=== PATIENT | female | born 1930 | race African-American/Black ===

== ENCOUNTER 2020-02-12 19:23 | Inpatient (IN) ==
[2020-02-12] MEDS ORDERED: SODIUM CHLORIDE 0.9% 500 ML IV STA (19:52)
[2020-02-12 20:19] LABS: Basophils % 0.6 % (0.0-0.8); Eosinophils # 0.4 10*3/uL (0.0-0.87); Eosinophils % 7.4 % (0.00-10.9); Hematocrit 33.3 VOL% (35.7-47.0); Hemoglobin 10.3 GM/DL (12.0-16.0); Immature Granulocytes % 0.2 %; Immature Granulocytes Absolute 0.01 #; Lymphocytes # 1.1 10*3/uL (1.4-4.0); Lymphocytes % 23.3 % (21.3-54.2); Mean Corpuscular HGB Conc 30.9 GM/DL (32-36); Mean Corpuscular Volume 92.5 FL (87-102); Mean Platelet Volume 10.9 FL (9.6-12.0); Monocytes % 8.2 % (1.7-12.7); Neutrophils % 60.3 % (38.7-73.9); Platelet Count 111 T/CUMM (130-400); Red Cell Distribution Width 13.3 % (9.3-17.3); White Blood Count 4.9 T/CUMM (4-12)
[2020-02-12 20:22] LABS: Alanine Aminotransferase 11 U/L (13-56); Alkaline Phosphatase 116 U/L (45-117); Aspartate Amino Transferase 13 U/L (0-37); Bilirubin,Total < 0.39 MG/DL (0.2-1.0); Blood Urea Nitrogen 23 MG/DL (7-18); Calcium 8.6 MG/DL (8.5-10.1); Glucose 171 MG/DL (74-106); Osmolality,Calculated 290.1 MOS/KG (273-304); Total Protein 6.7 G/DL (6.4-8.3)
[2020-02-12 20:23] LABS: Estimated Glom Filtration Rate 0 ML/MIN; Troponin I 0.076 NG/ML (0.00-0.045)
[2020-02-12] MEDS ORDERED: POTASSIUM CHLORIDE 20 MEQ TABLET PO STA (20:24)
[2020-02-12 20:53] LABS: INR 1.2; PT Patient Result 12.3 SECS (9.8-11.9)
[2020-02-12] MEDS ORDERED: ZALEPLON 5 MG CAPSULE PO PRN (21:12)
[2020-02-12] MEDS ORDERED: hydrALAZINE 20 MG/1 ML VIAL IV PRN (21:12)
[2020-02-12] MEDS ORDERED: guaiFENesin/DM ER 600-30 MG TABLET PO PRN (21:12)
[2020-02-12] MEDS ORDERED: DEXTROSE 50% 25 GM/50 ML VIAL IV PRN (21:12)
[2020-02-12] MEDS ORDERED: ONDANSETRON 4 MG/2 ML VIAL IV PRN (21:12)
[2020-02-12] MEDS ORDERED: GLUCAGON 1 MG VIAL IM PRN (21:12)
[2020-02-12] MEDS ORDERED: MORPHINE 4 MG/1 ML VIAL IV PRN (21:12)
[2020-02-12] MEDS ORDERED: NICOTINE 21 MG/24 HR PATCH TRANSDERM PRN (21:12)
[2020-02-12] MEDS ORDERED: ACETAMINOPHEN 325 MG TABLET PO PRN (21:12)
[2020-02-12] MEDS ORDERED: CETIRIZINE 10 MG TABLET PO PRN (21:15)
[2020-02-12 21:40] LABS: Bilirubin,Urine Negative (Negative); Blood, Urine Negative (Negative); Glucose,Urine (UA) Negative (Negative); Hyaline Casts,Urine 4 /LPF (0-3); Ketones,Urine Negative (Negative); Mucus,Urine Occasional /LPF (Occasional); Nitrite,Urine Negative (Negative); Protein,Urine Negative; RBC,Urine 1 /HPF (0-4); Squamous Epithelial Cell,Urine Occasional /HPF (0-10); Urine Appearance CLEAR (Clear); Urine Color Yellow (Yellow); Urine Urobilinogen < 2.0 EU/DL (0.2-1.0); WBC,Urine 1 /HPF (0-6)
[2020-02-12 21:42] LABS: Barbiturates Screen,Urine Negative (Negative); Benzodiazepines Screen,Urine Negative (Negative); Cannabinoid Screen,Urine Negative (Negative); Opiate Screen,Urine Negative (Negative); Phencyclidine Screen,Urine Negative (Negative)
[2020-02-12] MEDS ORDERED: AZITHROMYCIN INJ 500 MG in SODIUM CHLORIDE 0.9% 250 ML IV SCH (22:00)
[2020-02-12] MEDS: cefTRIAXone 1,000 MG in SYRINGE 1 EACH IV SCH (22:35)
[2020-02-12] MEDS: ENOXAPARIN 100 MG/ML SYRINGE SUBCUT SCH (22:35)
[2020-02-13 06:39] LABS: Basophils % 0.3 % (0.0-0.8); Eosinophils # 0.2 10*3/uL (0.0-0.87); Eosinophils % 2.9 % (0.00-10.9); Hematocrit 34.7 VOL% (35.7-47.0); Hemoglobin 10.7 GM/DL (12.0-16.0); Immature Granulocytes % 0.3 %; Immature Granulocytes Absolute 0.02 #; Lymphocytes # 0.9 10*3/uL (1.4-4.0); Lymphocytes % 13.3 % (21.3-54.2); Mean Corpuscular HGB Conc 30.8 GM/DL (32-36); Mean Corpuscular Volume 91.3 FL (87-102); Mean Platelet Volume 10.7 FL (9.6-12.0); Monocytes % 6.9 % (1.7-12.7); Neutrophils % 76.3 % (38.7-73.9); Platelet Count 136 T/CUMM (130-400); Red Cell Distribution Width 13.2 % (9.3-17.3); White Blood Count 6.9 T/CUMM (4-12)
[2020-02-13 06:58] LABS: Calcium 8.9 MG/DL (8.5-10.1); Osmolality,Calculated 285.1 MOS/KG (273-304)
[2020-02-13] MEDS: TRIAMTERENE/HCTZ 37.5-25 MG TABLET PO SCH (11:50)
[2020-02-13] MEDS: carvediloL 6.25 MG TABLET PO SCH ×2 (11:51→17:03)
[2020-02-13] MEDS: PANTOPRAZOLE 40 MG TABLET PO SCH (11:51)
[2020-02-13] MEDS: POTASSIUM CHLORIDE 20 MEQ TABLET PO SCH (11:51)
[2020-02-13] MEDS: DOCUSATE SODIUM 100 MG CAPSULE PO SCH ×2 (11:52→21:03)
[2020-02-13] MEDS: AZITHROMYCIN 250 MG TABLET PO SCH (11:52)
[2020-02-13] MEDS: ASPIRIN EC 81 MG TABLET PO SCH (11:53)
[2020-02-13] MEDS: diphenhydrAMINE CAP 25 MG CAPSULE PO PRN (20:57)
[2020-02-13] MEDS: cefTRIAXone 1,000 MG in SYRINGE 1 EACH IV SCH (21:03)
[2020-02-13] MEDS: ENOXAPARIN 100 MG/ML SYRINGE SUBCUT SCH (22:01)
[2020-02-14 05:27] LABS: Basophils % 0.6 % (0.0-0.8); Eosinophils # 0.5 10*3/uL (0.0-0.87); Eosinophils % 8.7 % (0.00-10.9); Hematocrit 33.7 VOL% (35.7-47.0); Hemoglobin 10.5 GM/DL (12.0-16.0); Immature Granulocytes % 0.5 %; Immature Granulocytes Absolute 0.03 #; Lymphocytes # 1.4 10*3/uL (1.4-4.0); Lymphocytes % 22.5 % (21.3-54.2); Mean Corpuscular HGB Conc 31.2 GM/DL (32-36); Mean Corpuscular Volume 92.3 FL (87-102); Mean Platelet Volume 10.8 FL (9.6-12.0); Neutrophils % 59.7 % (38.7-73.9); Platelet Count 138 T/CUMM (130-400); Red Blood Count 3.65 MC/CUMM (3.8-5.5); Red Cell Distribution Width 13.1 % (9.3-17.3); White Blood Count 6.2 T/CUMM (4-12)
[2020-02-14 06:00] LABS: Hypochromasia 1+; Microcytosis 1+; Ovalocytes Slight; Platelet Estimate Normal
[2020-02-14 06:02] LABS: Calcium 9.1 MG/DL (8.5-10.1); Osmolality,Calculated 285.1 MOS/KG (273-304)
[2020-02-14 06:06] LABS: Troponin I 0.614 NG/ML (0.00-0.045)
[2020-02-14] MEDS: carvediloL 6.25 MG TABLET PO SCH ×2 (08:43→17:44)
[2020-02-14] MEDS: PANTOPRAZOLE 40 MG TABLET PO SCH (08:43)
[2020-02-14] MEDS: POTASSIUM CHLORIDE 20 MEQ TABLET PO SCH (08:43)
[2020-02-14] MEDS: ASPIRIN EC 81 MG TABLET PO SCH (08:43)
[2020-02-14] MEDS: DOCUSATE SODIUM 100 MG CAPSULE PO SCH ×2 (08:44→21:15)
[2020-02-14] MEDS: TRIAMTERENE/HCTZ 37.5-25 MG TABLET PO SCH (08:44)
[2020-02-14] MEDS: AZITHROMYCIN 250 MG TABLET PO SCH (08:44)
[2020-02-14] MEDS ORDERED: ZALEPLON 5 MG CAPSULE PO SCH (21:00)
[2020-02-14] MEDS: APIXABAN 5 MG TABLET PO SCH (21:15)
[2020-02-14] MEDS: diphenhydrAMINE CAP 25 MG CAPSULE PO PRN (21:15)
[2020-02-14] MEDS: cefTRIAXone 1,000 MG in SYRINGE 1 EACH IV SCH (22:43)
[2020-02-15] MEDS: ASPIRIN EC 81 MG TABLET PO SCH (09:18)
[2020-02-15] MEDS: PANTOPRAZOLE 40 MG TABLET PO SCH (09:19)
[2020-02-15] MEDS: TRIAMTERENE/HCTZ 37.5-25 MG TABLET PO SCH (09:19)
[2020-02-15] MEDS: APIXABAN 5 MG TABLET PO SCH (09:19)
[2020-02-15] MEDS: DOCUSATE SODIUM 100 MG CAPSULE PO SCH (09:19)
[2020-02-15] MEDS: AZITHROMYCIN 250 MG TABLET PO SCH (09:19)
[2020-02-15] MEDS: POTASSIUM CHLORIDE 20 MEQ TABLET PO SCH (09:19)
[2020-02-15] MEDS: carvediloL 6.25 MG TABLET PO SCH (09:20)
[2020-02-15 09:51] VITALS: BP 149/68
== END 2020-02-15 15:10 | disposition home health service (06) | DRG 175 ==
LOC: N.EDINP 19:23 → N.ED 19:23 → SUATTDRO 21:12 → N.EDINP 23:05 → N.TELEN 23:36
PROVIDERS: ADMIT Internal Medicine; ATTEND Internal Medicine

== ENCOUNTER 2020-02-16 10:27 | Inpatient (IN) ==
[2020-02-16 11:53] LABS: Apearance,Urine CLEAR (Clear); Bilirubin,Urine Negative (Negative); Blood, Urine Negative (Negative); Glucose,Urine (UA) Negative (Negative); Hyaline Casts,Urine 1 /LPF (0-3); Ketones,Urine Negative (Negative); Mucus,Urine Occasional /LPF (Occasional); Nitrite,Urine Negative (Negative); Protein,Urine Negative; RBC,Urine 1 /HPF (0-4); Squamous Epithelial Cell,Urine Occasional /HPF (0-10); Urine Color Yellow (Yellow); Urine Specific Gravity 1.015 (1.001-1.035); Urine Urobilinogen < 2.0 EU/DL (0.2-1.0); WBC,Urine <1 /HPF (0-6)
[2020-02-16 11:53] LABS: Basophils % 0.3 % (0.0-0.8); Eosinophils # 0.7 10*3/uL (0.0-0.87); Eosinophils % 7.1 % (0.00-10.9); Hematocrit 32.3 VOL% (35.7-47.0); Hemoglobin 9.9 GM/DL (12.0-16.0); Immature Granulocytes % 0.4 %; Immature Granulocytes Absolute 0.04 #; Lymphocytes # 0.8 10*3/uL (1.4-4.0); Lymphocytes % 8.2 % (21.3-54.2); Mean Corpuscular HGB Conc 30.7 GM/DL (32-36); Mean Corpuscular Volume 93.6 FL (87-102); Mean Platelet Volume 11.4 FL (9.6-12.0); Platelet Count 184 T/CUMM (130-400); Red Blood Count 3.45 MC/CUMM (3.8-5.5); Red Cell Distribution Width 13.1 % (9.3-17.3); White Blood Count 10.1 T/CUMM (4-12)
[2020-02-16 12:09] LABS: INR 1.2; PT Patient Result 12.4 SECS (9.8-11.9); Partial Thromboplastin Time 24.2 SECS (23.9-33.8)
[2020-02-16 12:10] LABS: Albumin 2.6 G/DL (3.4-5.0); Bilirubin,Total 0.5 MG/DL (0.2-1.0); Osmolality,Calculated 291.1 MOS/KG (273-304); Total Protein 6.1 G/DL (6.4-8.3)
[2020-02-16 12:14] LABS: Troponin I 0.093 NG/ML (0.00-0.045)
[2020-02-16] MEDS ORDERED: SODIUM CHLORIDE 0.9% 1,000 ML IV STA (13:31)
[2020-02-16] MEDS ORDERED: cefTRIAXone 1,000 MG in SODIUM CHLORIDE 0.9% 100 ML IV STA (13:31)
[2020-02-16] MEDS ORDERED: GLUCAGON 1 MG VIAL IM PRN (13:53)
[2020-02-16] MEDS ORDERED: DEXTROSE 50% 25 GM/50 ML VIAL IV PRN (13:53)
[2020-02-16] MEDS ORDERED: SODIUM CHLORIDE 0.9% 1,000 ML IV SCH (14:00)
[2020-02-16 14:19] LABS: % Iron Saturation 16.2 % (18-50)
[2020-02-16] MEDS ORDERED: ACETAMINOPHEN 325 MG TABLET PO PRN (14:22)
[2020-02-16] MEDS ORDERED: ONDANSETRON 4 MG/2 ML VIAL IV PRN (14:22)
[2020-02-16] MEDS: APIXABAN 5 MG TABLET PO SCH (20:25)
[2020-02-16] MEDS ORDERED: DOCUSATE SODIUM 100 MG CAPSULE PO PRN (21:00)
[2020-02-17 05:26] LABS: Basophils % 0.3 % (0.0-0.8); Eosinophils # 0.3 10*3/uL (0.0-0.87); Immature Granulocytes % 0.3 %; Immature Granulocytes Absolute 0.03 #; Mean Corpuscular HGB Conc 30.4 GM/DL (32-36); Mean Corpuscular Volume 94.3 FL (87-102); Monocytes % 5.9 % (1.7-12.7); Neutrophils % 79.5 % (38.7-73.9); Platelet Count 151 T/CUMM (130-400); Red Blood Count 2.44 MC/CUMM (3.8-5.5); Red Cell Distribution Width 13.2 % (9.3-17.3); White Blood Count 9.4 T/CUMM (4-12)
[2020-02-17 06:10] LABS: Albumin 2.2 G/DL (3.4-5.0); Bilirubin,Total 0.6 MG/DL (0.2-1.0); Calcium 8.1 MG/DL (8.5-10.1); Osmolality,Calculated 298.1 MOS/KG (273-304); Total Protein 5.2 G/DL (6.4-8.3)
[2020-02-17] MEDS ORDERED: PANTOPRAZOLE 40 MG TABLET PO SCH (09:00)
[2020-02-17] MEDS ORDERED: SODIUM CHLORIDE 0.9% 1,000 ML IV PRN (09:08)
[2020-02-17] MEDS: AZITHROMYCIN 250 MG TABLET PO SCH (09:25)
[2020-02-17] MEDS: DULoxetine 30 MG CAPSULE PO SCH (09:25)
[2020-02-17] MEDS: APIXABAN 5 MG TABLET PO SCH (09:28)
[2020-02-17] MEDS: FERRIC GLUCONATE COMPLEX 125 MG in SODIUM CHLORIDE 0.9% 100 ML IV SCH (09:28)
[2020-02-17] MEDS: cefTRIAXone 1,000 MG in SYRINGE 1 EACH IV SCH (09:28)
[2020-02-17] MEDS: PANTOPRAZOLE 40 MG VIAL IV SCH ×2 (09:29→21:23)
[2020-02-17 17:51] LABS: Hematocrit 27.9 VOL% (35.7-47.0); Hemoglobin 8.9 GM/DL (12.0-16.0)
[2020-02-17 22:28] LABS: Hematocrit 23.9 VOL% (35.7-47.0); Hemoglobin 7.8 GM/DL (12.0-16.0)
[2020-02-18 05:50] LABS: Basophils # 0.1 10*3/uL (0.0-0.2); Basophils % 0.5 % (0.0-0.8); Eosinophils # 0.9 10*3/uL (0.0-0.87); Eosinophils % 8.6 % (0.00-10.9); Hematocrit 23.5 VOL% (35.7-47.0); Hemoglobin 7.6 GM/DL (12.0-16.0); Immature Granulocytes % 0.6 %; Immature Granulocytes Absolute 0.06 #; Lymphocytes # 1.5 10*3/uL (1.4-4.0); Lymphocytes % 13.5 % (21.3-54.2); Mean Corpuscular HGB Conc 32.3 GM/DL (32-36); Mean Platelet Volume 11.5 FL (9.6-12.0); Monocytes % 5.9 % (1.7-12.7); Neutrophils % 70.9 % (38.7-73.9); Platelet Count 155 T/CUMM (130-400); Red Cell Distribution Width 13.6 % (9.3-17.3); White Blood Count 10.8 T/CUMM (4-12)
[2020-02-18 06:11] LABS: Albumin 2.2 G/DL (3.4-5.0); Bilirubin,Total 0.4 MG/DL (0.2-1.0); Calcium 8.1 MG/DL (8.5-10.1); Osmolality,Calculated 308.6 MOS/KG (273-304); Total Protein 5.1 G/DL (6.4-8.3)
[2020-02-18] MEDS ORDERED: SODIUM CHLORIDE 0.9% 1,000 ML IV PRN ×2 (08:02→11:25)
[2020-02-18] MEDS ORDERED: propofoL 200 MG/20 ML VIAL IV ONE (09:00)
[2020-02-18] MEDS ORDERED: LIDOCAINE 2% 5 ML VIAL ONE (09:00)
[2020-02-18] MEDS ORDERED: PHENYLEPHRINE 1 MG/10 ML SYRINGE IV ONE (09:00)
[2020-02-18] MEDS ORDERED: ETOMIDATE 20 MG/10 ML VIAL IV ONE (09:00)
[2020-02-18] MEDS: PANTOPRAZOLE 40 MG VIAL IV SCH (09:05)
[2020-02-18] MEDS: cefTRIAXone 1,000 MG in SYRINGE 1 EACH IV SCH (09:06)
[2020-02-18] MEDS: DULoxetine 30 MG CAPSULE PO SCH (09:06)
[2020-02-18] MEDS: FERRIC GLUCONATE COMPLEX 125 MG in SODIUM CHLORIDE 0.9% 100 ML IV SCH (09:12)
[2020-02-18] MEDS: AZITHROMYCIN 250 MG TABLET PO SCH (09:18)
[2020-02-18 10:46] LABS: Hematocrit 20.7 VOL% (35.7-47.0)
[2020-02-18 10:49] LABS: Hemoglobin 6.9 GM/DL (12.0-16.0)
[2020-02-18] MEDS: LACTATED RINGERS 1,000 ML IV SCH (13:06)
[2020-02-18] MEDS: PANTOPRAZOLE INJ 200 MG in SODIUM CHLORIDE 0.9% 250 ML IV SCH (16:05)
[2020-02-18 21:53] LABS: Hematocrit 26.2 VOL% (35.7-47.0)
[2020-02-18 21:54] LABS: Hemoglobin 8.7 GM/DL (12.0-16.0)
[2020-02-19 05:30] LABS: Basophils % 0.4 % (0.0-0.8); Eosinophils # 0.9 10*3/uL (0.0-0.87); Eosinophils % 8.7 % (0.00-10.9); Hemoglobin 8.4 GM/DL (12.0-16.0); Immature Granulocytes % 0.4 %; Immature Granulocytes Absolute 0.04 #; Lymphocytes # 1.3 10*3/uL (1.4-4.0); Lymphocytes % 12.8 % (21.3-54.2); Mean Corpuscular HGB Conc 33.6 GM/DL (32-36); Mean Corpuscular Volume 92.3 FL (87-102); Monocytes % 6.6 % (1.7-12.7); Neutrophils % 71.1 % (38.7-73.9); Platelet Count 127 T/CUMM (130-400); Red Blood Count 2.71 MC/CUMM (3.8-5.5); White Blood Count 9.8 T/CUMM (4-12)
[2020-02-19 05:43] LABS: Calcium 8.2 MG/DL (8.5-10.1); Osmolality,Calculated 306.1 MOS/KG (273-304)
[2020-02-19 06:05] LABS: Anisocytosis Slight; Macrocytosis Slight; Platelet Estimate Adequate
[2020-02-19] MEDS ORDERED: POTASSIUM CHLORIDE 20 MEQ TABLET PO ONE (08:52)
[2020-02-19] MEDS: cefTRIAXone 1,000 MG in SYRINGE 1 EACH IV SCH (09:33)
[2020-02-19] MEDS: AZITHROMYCIN 250 MG TABLET PO SCH (09:33)
[2020-02-19] MEDS: SODIUM CHLOR 0.45% KCL 20 MEQ 20 MEQ/1,000 ML BAG IV SCH (09:33)
[2020-02-19] MEDS: DULoxetine 30 MG CAPSULE PO SCH (09:33)
[2020-02-19] MEDS: LACTATED RINGERS 1,000 ML IV SCH (10:40)
[2020-02-19 14:15] LABS: Hematocrit 26.9 VOL% (35.7-47.0); Hemoglobin 8.9 GM/DL (12.0-16.0)
[2020-02-19] MEDS: PANTOPRAZOLE INJ 200 MG in SODIUM CHLORIDE 0.9% 250 ML IV SCH (15:12)
[2020-02-20] MEDS: SODIUM CHLOR 0.45% KCL 20 MEQ 20 MEQ/1,000 ML BAG IV SCH (05:34)
[2020-02-20 05:48] LABS: Basophils % 0.2 % (0.0-0.8); Eosinophils # 0.8 10*3/uL (0.0-0.87); Eosinophils % 8.2 % (0.00-10.9); Hematocrit 25.8 VOL% (35.7-47.0); Hemoglobin 8.3 GM/DL (12.0-16.0); Immature Granulocytes % 0.5 %; Immature Granulocytes Absolute 0.05 #; Lymphocytes # 1.2 10*3/uL (1.4-4.0); Lymphocytes % 12.6 % (21.3-54.2); Mean Corpuscular HGB Conc 32.2 GM/DL (32-36); Mean Corpuscular Volume 96.3 FL (87-102); Mean Platelet Volume 11.2 FL (9.6-12.0); Monocytes % 6.7 % (1.7-12.7); Neutrophils % 71.8 % (38.7-73.9); Platelet Count 154 T/CUMM (130-400); Red Blood Count 2.68 MC/CUMM (3.8-5.5); Red Cell Distribution Width 14.1 % (9.3-17.3); White Blood Count 9.1 T/CUMM (4-12)
[2020-02-20 06:15] LABS: Calcium 8.2 MG/DL (8.5-10.1); Osmolality,Calculated 290.7 MOS/KG (273-304)
[2020-02-20] MEDS ORDERED: BISACODYL 5 MG TABLET PO ONE (09:01)
[2020-02-20] MEDS: AZITHROMYCIN 250 MG TABLET PO SCH (11:35)
[2020-02-20] MEDS: DULoxetine 30 MG CAPSULE PO SCH (11:35)
[2020-02-20] MEDS: cefTRIAXone 1,000 MG in SYRINGE 1 EACH IV SCH (11:36)
[2020-02-20] MEDS: LETROZOLE 2.5 MG TABLET PO SCH (13:31)
[2020-02-20] MEDS: PANTOPRAZOLE INJ 200 MG in SODIUM CHLORIDE 0.9% 250 ML IV SCH (15:07)
[2020-02-20] MEDS: carvediloL 6.25 MG TABLET PO SCH (16:45)
[2020-02-20] MEDS: ENOXAPARIN 100 MG/ML SYRINGE SUBCUT SCH (20:37)
[2020-02-20] MEDS ORDERED: traZODone 50 MG TABLET PO PRN (23:30)
[2020-02-21 05:54] LABS: Basophils % 0.3 % (0.0-0.8); Eosinophils # 0.7 10*3/uL (0.0-0.87); Eosinophils % 7.3 % (0.00-10.9); Hematocrit 25.4 VOL% (35.7-47.0); Hemoglobin 8.2 GM/DL (12.0-16.0); Immature Granulocytes % 0.5 %; Immature Granulocytes Absolute 0.05 #; Lymphocytes # 1.1 10*3/uL (1.4-4.0); Lymphocytes % 10.8 % (21.3-54.2); Mean Corpuscular HGB Conc 32.3 GM/DL (32-36); Mean Corpuscular Volume 96.9 FL (87-102); Mean Platelet Volume 11.4 FL (9.6-12.0); Neutrophils % 75.1 % (38.7-73.9); Platelet Count 170 T/CUMM (130-400); Red Blood Count 2.62 MC/CUMM (3.8-5.5); Red Cell Distribution Width 13.5 % (9.3-17.3)
[2020-02-21 05:58] LABS: INR 1.1; PT Patient Result 12.1 SECS (9.8-11.9)
[2020-02-21 06:26] LABS: Calcium 8.5 MG/DL (8.5-10.1)
[2020-02-21] MEDS: DULoxetine 30 MG CAPSULE PO SCH (09:00)
[2020-02-21] MEDS: cefTRIAXone 1,000 MG in SYRINGE 1 EACH IV SCH (09:42)
[2020-02-21] MEDS: ENOXAPARIN 100 MG/ML SYRINGE SUBCUT SCH (09:43)
[2020-02-21] MEDS: LETROZOLE 2.5 MG TABLET PO SCH (09:43)
[2020-02-21] MEDS: carvediloL 6.25 MG TABLET PO SCH (09:44)
[2020-02-21] MEDS: AZITHROMYCIN 250 MG TABLET PO SCH (09:44)
[2020-02-21 12:10] VITALS: BP 110/78
== END 2020-02-21 13:15 | disposition home health service (06) | DRG 356 ==
LOC: N.ED 10:27 → N.EDINP 10:27 → N.TELES 16:54 → SUATTDRO 02-17 13:08
PROVIDERS: ADMIT Internal Medicine; ATTEND Internal Medicine

== ENCOUNTER 2020-11-16 14:03 | Inpatient (IN) ==
[2020-11-16 15:04] LABS: Basophils % 0.3 % (0.0-0.8); Eosinophils # 0.3 10*3/uL (0.0-0.87); Eosinophils % 5.1 % (0.00-10.9); Hematocrit 33.6 VOL% (35.7-47.0); Hemoglobin 10.1 GM/DL (12.0-16.0); Immature Granulocytes % 0.3 %; Immature Granulocytes Absolute 0.02 #; Lymphocytes # 0.7 10*3/uL (1.4-4.0); Lymphocytes % 11.8 % (21.3-54.2); Mean Corpuscular HGB Conc 30.1 GM/DL (32-36); Mean Corpuscular Volume 93.9 FL (87-102); Mean Platelet Volume 10.1 FL (9.6-12.0); Monocytes % 7.8 % (1.7-12.7); Neutrophils % 74.7 % (38.7-73.9); Platelet Count 265 T/CUMM (130-400); Red Blood Count 3.58 MC/CUMM (3.8-5.5)
[2020-11-16 15:08] LABS: Bilirubin,Urine Negative (Negative); Blood, Urine Negative (Negative); Glucose,Urine (UA) Negative (Negative); Ketones,Urine Negative (Negative); Nitrite,Urine Negative (Negative); Protein,Urine Negative; RBC,Urine <1 /HPF (0-4); Squamous Epithelial Cell,Urine Occasional /HPF (0-10); Urine Appearance CLEAR (Clear); Urine Color Straw (Yellow); Urine Specific Gravity 1.003 (1.001-1.035); Urine Urobilinogen < 2.0 EU/DL (0.2-1.0)
[2020-11-16 15:13] LABS: INR 4.5; PT Patient Result 45.6 SECS (10.5-12.0); Partial Thromboplastin Time 40.5 SECS (23.9-33.8)
[2020-11-16 15:24] LABS: Alanine Aminotransferase 10 U/L (13-56); Albumin 2.4 G/DL (3.4-5.0); Alkaline Phosphatase 121 U/L (45-117); Aspartate Amino Transferase 10 U/L (0-37); Bilirubin,Total < 0.39 MG/DL (0.2-1.0); Blood Urea Nitrogen 9 MG/DL (7-18); Calcium 8.4 MG/DL (8.5-10.1); Carbon Dioxide 26 MMOL/L (21-32); Estimated Glom Filtration Rate 103 ML/MIN; Glucose 134 MG/DL (74-106); Potassium 3.9 MMOL/L (3.5-5.1); Sodium 143 MMOL/L (136-145); Total Protein 5.6 G/DL (6.4-8.2)
[2020-11-16 16:27] LABS: Barbiturates Screen,Urine Negative (Negative); Benzodiazepines Screen,Urine Negative (Negative); Cannabinoid Screen,Urine Negative (Negative); Opiate Screen,Urine Negative (Negative); Phencyclidine Screen,Urine Negative (Negative)
[2020-11-16] MEDS ORDERED: DEXTROSE 50% 25 GM/50 ML VIAL IV PRN (16:59)
[2020-11-16] MEDS ORDERED: ONDANSETRON 4 MG/2 ML VIAL IV PRN (16:59)
[2020-11-16] MEDS ORDERED: GLUCAGON 1 MG VIAL IM PRN (16:59)
[2020-11-16 20:11] LABS: Hematocrit 34.2 VOL% (35.7-47.0); Hemoglobin 10.3 GM/DL (12.0-16.0)
[2020-11-17 01:54] LABS: Hematocrit 35.3 VOL% (35.7-47.0); Hemoglobin 10.5 GM/DL (12.0-16.0)
[2020-11-17 05:32] LABS: Basophils % 0.4 % (0.0-0.8); Eosinophils # 0.2 10*3/uL (0.0-0.87); Eosinophils % 2.8 % (0.00-10.9); Hematocrit 31.5 VOL% (35.7-47.0); Hemoglobin 9.9 GM/DL (12.0-16.0); Immature Granulocytes % 0.3 %; Immature Granulocytes Absolute 0.02 #; Lymphocytes # 0.7 10*3/uL (1.4-4.0); Lymphocytes % 10.3 % (21.3-54.2); Mean Corpuscular HGB Conc 31.4 GM/DL (32-36); Mean Platelet Volume 10.6 FL (9.6-12.0); Monocytes % 8.5 % (1.7-12.7); Neutrophils % 77.7 % (38.7-73.9); Platelet Count 231 T/CUMM (130-400); Red Blood Count 3.46 MC/CUMM (3.8-5.5); Red Cell Distribution Width 12.9 % (9.3-17.3); White Blood Count 7.1 T/CUMM (4-12)
[2020-11-17 05:48] LABS: INR 4.7; PT Patient Result 47.3 SECS (10.5-12.0)
[2020-11-17 05:49] LABS: Calcium 8.7 MG/DL (8.5-10.1); Potassium 3.7 MMOL/L (3.5-5.1)
[2020-11-17 08:19] LABS: Hematocrit 34.3 VOL% (35.7-47.0); Hemoglobin 10.7 GM/DL (12.0-16.0)
[2020-11-17] MEDS: cefTRIAXone 1,000 MG in SODIUM CHLORIDE 0.9% 100 ML IV SCH (10:55)
[2020-11-17] MEDS: AZITHROMYCIN INJ 500 MG in SODIUM CHLORIDE 0.9% 250 ML IV SCH (11:15)
[2020-11-17] MEDS: carvediloL 6.25 MG TABLET PO SCH (17:41)
[2020-11-17] MEDS: PANTOPRAZOLE 40 MG TABLET PO SCH (21:20)
[2020-11-18 05:31] LABS: Basophils % 0.5 % (0.0-0.8); Eosinophils # 0.4 10*3/uL (0.0-0.87); Eosinophils % 5.5 % (0.00-10.9); Hematocrit 32.2 VOL% (35.7-47.0); Hemoglobin 10.1 GM/DL (12.0-16.0); Immature Granulocytes % 0.5 %; Immature Granulocytes Absolute 0.03 #; Lymphocytes # 0.7 10*3/uL (1.4-4.0); Lymphocytes % 10.4 % (21.3-54.2); Mean Corpuscular HGB Conc 31.4 GM/DL (32-36); Mean Platelet Volume 10.7 FL (9.6-12.0); Monocytes % 6.3 % (1.7-12.7); Neutrophils % 76.8 % (38.7-73.9); Platelet Count 231 T/CUMM (130-400); Red Cell Distribution Width 12.9 % (9.3-17.3); White Blood Count 6.4 T/CUMM (4-12)
[2020-11-18 05:36] LABS: INR 2.5; PT Patient Result 26.4 SECS (10.5-12.0)
[2020-11-18 05:43] LABS: Calcium 8.7 MG/DL (8.5-10.1); Osmolality,Calculated 280.1 MOS/KG (273-304); Potassium 3.6 MMOL/L (3.5-5.1)
[2020-11-18] MEDS: cefTRIAXone 1,000 MG in SODIUM CHLORIDE 0.9% 100 ML IV SCH (08:31)
[2020-11-18] MEDS: PANTOPRAZOLE 40 MG TABLET PO SCH (08:31)
[2020-11-18] MEDS: carvediloL 6.25 MG TABLET PO SCH (08:31)
[2020-11-18] MEDS: AZITHROMYCIN INJ 500 MG in SODIUM CHLORIDE 0.9% 250 ML IV SCH (09:47)
[2020-11-18 11:32] VITALS: BP 102/53
== END 2020-11-18 11:45 | disposition home or self-care (01) | DRG 193 ==
LOC: N.EDINP 14:03 → N.ED 14:03 → N.3E 17:53
PROVIDERS: ADMIT Internal Medicine; ATTEND Internal Medicine